=== PATIENT | female | born 1995 | race American Indian/Alaskan Native ===

== ENCOUNTER 2017-07-01 17:44 | Emergency (ER) | payer MEDICAID ==
--- NOTE | 2017-07-01 19:35 | C.PDOC ---
History Of Present Illness The patient presents today with complaints of pelvic discomfort, present for the past 4 days. She reports she was treated for chlamydia 1 month ago, however the treatment was incomplete - patient states she did not receive rocephin and when she took the zithromax, she vomited. She states she has only been taking doxycycline for the past month. She denies any associated vaginal discharge, pain upon ambulation, fever, chills, nausea, vomiting. She offers no additional medical complaints. Time Seen by Provider: 07/01/17 19:34 Chief Complaint (Nursing): Female Genitourinary History Per: Patient History/Exam Limitations: no limitations Onset/Duration Of Symptoms: Days (4) Current Symptoms Are (Timing): Still Present Severity: Mild Pain Scale Rating Of: 3 Quality Of Discomfort: "Pain" Associated Symptoms: denies: Fever, Chills, Nausea, Vomiting Alleviating Factors: None Recent travel outside of the [place]: No Additional History Per: Patient Abnormal Vaginal Bleeding: No Past Medical History Reviewed: Historical Data, Nursing Documentation, Vital Signs Vital Signs: Last Vital Signs Temp 98.5 F 07/01/17 18:40 Pulse 99 H 07/01/17 18:40 Resp 18 07/01/17 18:40 BP 156/96 H 07/01/17 18:40 Pulse Ox 99 07/01/17 20:15 - Medical History PMH: No Chronic Diseases Surgical History: No Surg Hx Family History: States: No Known Family Hx - Social History Hx Alcohol Use: Yes Hx Substance Use: Yes - Immunization History Hx Tetanus Toxoid Vaccination: No Hx Influenza Vaccination: No Hx Pneumococcal Vaccination: No Review Of Systems Constitutional: Negative for: Fever, Chills Eyes: Negative for: Redness Cardiovascular: Negative for: Chest Pain Respiratory: Negative for: Shortness of Breath Gastrointestinal: Negative for: Nausea, Vomiting Genitourinary: Positive for: Pelvic Pain. Negative for: Vaginal Discharge Musculoskeletal: Negative for: Other (pain upon ambulation) Skin: Negative for: Rash, Lesions Neurological: Negative for: Weakness Psych: Negative for: Anxiety Physical Exam - Physical Exam Appears: Non-toxic, No Acute Distress Skin: Warm, Dry Oral Mucosa: Moist Neck: Supple Cardiovascular: Rhythm Regular Respiratory: No Decreased Breath Sounds, No Accessory Muscle Use Gastrointestinal/Abdominal: Bowel Sounds, Soft, No Tenderness, No Distention, No Guarding, No Rebound Back: No CVA Tenderness Extremity: No Deformity, No Swelling Extremity: Bilateral: Atraumatic Neurological/Psych: Oriented x3, Normal Speech, Normal Cognition Gait: Steady ED Course And Treatment - Laboratory Results Result Diagrams: 07/01/17 20:07 07/01/17 20:07 O2 Sat by Pulse Oximetry: 99 (RA) Pulse Ox Interpretation: Normal Progress Note: Labs, Zithromax 1000 mg PO, Rocephin IVPB, Zofran 4mg IV, IV fluids ordered. Reevaluation Time: 22:28 Disposition Counseled Patient/Family Regarding: Studies Performed, Diagnosis, Need For Followup - Disposition Referrals: Robert Umanzor MD [Medical Doctor] - Disposition: HOME/ ROUTINE Disposition Time: 19:35 Condition: FAIR Prescriptions: Doxycycline Hyclate 100 mg PO BID #20 capsule Instructions: Chlamydia (ED) Forms: [employer] (Hong Konger) - Clinical Impression Clinical Impression: Urethritis - Scribe Statement The provider has reviewed the documentation as recorded by the Juliette Kothari Provider Attestation: All medical record entries made by the Juliette were at my direction and personally dictated by me. I have reviewed the chart and agree that the record accurately reflects my personal performance of the history, physical exam, medical decision making, and the department course for this patient. I have also personally directed, reviewed, and agree with the discharge instructions and disposition.
[2017-07-01] MEDS ORDERED: Sodium Chloride 0.9% 1,000 ML IV ONE (19:37)
[2017-07-01 20:11] LABS: BASO # 0.1 K/uL (0.0-0.2); BASO % 0.5 % (0.0-2.0); EOS # 0.1 K/uL (0.0-0.7); HEMATOCRIT 37.4 % (34.0-47.0); LYMPH # 4.2 K/uL (1.0-4.3); LYMPH % 42.7 % (20.0-40.0); MEAN CELL VOLUME 88.2 fL (81.0-99.0); MEAN CORPUSCULAR HEMOGLOBIN 29.8 pg (27.0-31.0); MEAN CORPUSCULAR HGB CONC 33.8 g/dL (33.0-37.0); MEAN PLATELET VOLUME 9.6 fL (7.2-11.7); MONO # 0.9 K/uL (0.0-0.8); MONO % 8.8 % (0.0-10.0); NRBC % 0.1 % (0.0-2.0); WHITE BLOOD COUNT 9.8 K/uL (4.8-10.8)
[2017-07-01 20:22] LABS: CHLORIDE 108 mmol/L (98-107); POTASSIUM 3.5 mmol/L (3.6-5.2); SODIUM 138 mmol/L (132-148)
[2017-07-01] MEDS ORDERED: cefTRIAXone IV 1 gm in Dextros 50 ML IVPB ONE ×2 (20:23→21:00)
[2017-07-01 20:24] LABS: AST/SGOT 16 U/L (14-36); BILIRUBIN,TOTAL 0.5 mg/dL (0.2-1.3); GFR AFRICAN-AMERICAN > 60; INR 1.1
[2017-07-01 20:25] LABS: ALB/GLOB RATIO 1.4 (1.0-2.1); ALKALINE PHOSPHATASE 67 U/L (38-126); ALT/SGPT 26 U/L (9-52); BLOOD UREA NITROGEN 8 mg/dL (7-17); CALCIUM 8.9 mg/dl (8.6-10.4); CARBON DIOXIDE 19 mmol/L (22-30); GLUCOSE,RANDOM 83 mg/dL (65-105); TOTAL PROTEIN 7.1 g/dL (6.3-8.3)
[2017-07-01 20:31] LABS: RBC URINE 1 /hpf (0-3); URINE BACTERIA OCC (<OCC); URINE BILIRUBIN NEGATIVE (NEGATIVE); URINE BLOOD NEGATIVE (NEGATIVE); URINE COLOR Yellow (YELLOW); URINE GLUCOSE (UA) NORMAL (Normal); URINE KETONE NEGATIVE (NEGATIVE); URINE LEUKOCYTE ESTERASE TRACE Leu/uL (Negative); URINE PROTEIN NEGATIVE (NEGATIVE); URINE UROBILINOGEN NORMAL mg/dL (0.2-1.0); WBC URINE 4 /hpf (0-5)
[2017-07-01 23:38] VITALS: BP 128/70; PULSE 76; RESP 20; TEMP 98; O2SAT 98
== END 2017-07-01 23:37 | disposition home or self-care (01) ==
LOC: C.ER 17:44
DX: N34.2 Other urethritis (principal)
CPT/HCPCS: 80053; 81001; 84703; 85025; 85610; 85730; 87491; 87591; 96374; 99282; J2405; J7040

== ENCOUNTER 2017-12-01 20:51 | Emergency (ER) | payer BC, MEDICAID, OTHER ==
[2017-12-01 21:06] VITALS: RESP 16
[2017-12-01 21:39] LABS: HCG,QUALITATIVE URINE POSITIVE (NEGATIVE)
[2017-12-01 21:41] LABS: SQUAMOUS EPITHIAL 4 /hpf (0-5); URINE BACTERIA OCC (<OCC); URINE BILIRUBIN NEGATIVE (NEGATIVE); URINE BLOOD 3+ (NEGATIVE); URINE CLARITY Clear (Clear); URINE GLUCOSE (UA) NORMAL (Normal); URINE LEUKOCYTE ESTERASE TRACE Leu/uL (Negative); URINE NITRATE NEGATIVE (NEGATIVE); URINE PROTEIN NEGATIVE (NEGATIVE); URINE UROBILINOGEN NORMAL mg/dL (0.2-1.0)
[2017-12-01 21:43] LABS: URINE COLOR YELLOW (YELLOW)
--- NOTE | 2017-12-01 21:50 | C.PDOC ---
History Of Present Illness 22-year-old female, presents to the emergency department with complaints of diffuse abdominal discomfort. Patient states her last menstrual period was on . She had a positive test at home. Today, she developed lower abdominal cramping associated with dark brown vagina discharge. Patient has had two prior pregnancies, states she miscarried at 8 weeks, and had a still born at 6 months. Denies nausea/vomiting, fevers, chills, headache, dizziness, chest pain or shortness of breath. No other complaints at this time. Time Seen by Provider: 12/01/17 21:19 Chief Complaint (Nursing): Abdominal Pain History Per: Patient History/Exam Limitations: no limitations Current Symptoms Are (Timing): Still Present Severity: Moderate Past Medical History Reviewed: Historical Data, Nursing Documentation, Vital Signs Vital Signs: Last Vital Signs Temp 98.5 F 12/01/17 21:01 Pulse 84 12/01/17 21:01 Resp 16 12/01/17 21:01 BP 155/90 H 12/01/17 21:01 Pulse Ox 100 12/01/17 23:08 Family History: States: No Known Family Hx - Social History Hx Alcohol Use: Yes Hx Substance Use: No - Immunization History Hx Tetanus Toxoid Vaccination: No Hx Influenza Vaccination: No Hx Pneumococcal Vaccination: No Review Of Systems Except As Marked, All Systems Reviewed And Found Negative. Constitutional: Negative for: Fever, Chills Cardiovascular: Negative for: Chest Pain, Palpitations Respiratory: Negative for: Shortness of Breath Gastrointestinal: Positive for: Abdominal Pain. Negative for: Nausea, Vomiting , Diarrhea Genitourinary: Positive for: Vaginal Bleeding. Negative for: Vaginal Discharge Musculoskeletal: Negative for: Back Pain Skin: Negative for: Rash Neurological: Negative for: Weakness, Numbness, Headache, Dizziness Physical Exam - Physical Exam Appears: Non-toxic, No Acute Distress Skin: Warm, Dry, No Rash Head: Normacephalic Eye(s): bilateral: Normal Inspection, PERRL Nose: Normal Oral Mucosa: Moist Neck: Normal ROM Chest: Symmetrical Cardiovascular: Rhythm Regular, No Murmur Respiratory: Normal Breath Sounds, No Accessory Muscle Use Gastrointestinal/Abdominal: Soft, No Tenderness, No Guarding Extremity: Normal ROM Neurological/Psych: Oriented x3, Normal Speech ED Course And Treatment - Laboratory Results Result Diagrams: 12/01/17 22:09 12/01/17 22:09 Lab Interpretation: Abnormal (BHCG 488) O2 Sat by Pulse Oximetry: 100 (RA) Pulse Ox Interpretation: Normal - CT Scan/US Ultrasound Other Rad Studies (CT/US): Interpreted By Me, Read By Radiologist, Radiology Report Reviewed CT/US Interpretation: EXAM: US First Trimester, Transabdominal. CLINICAL HISTORY: 22 years old, female; Pain and signs and symptoms; Other: Vag bleed; Pelvic pain; Additional info: with vaginal bleeding. TECHNIQUE: Real-time transabdominal obstetrical ultrasound of the maternal pelvis and a first trimester. with image documentation. COMPARISON: No relevant prior studies available. FINDINGS: Gestation: No intrauterine gestational sac. Uterus/cervix: Endometrium: 1.6 cm in thickness. Closed cervix.Ovaries: RIGHT ovary: Normal. LEFT ovary: Probable 1.9 x 2.2 x 1.9 cm corpus luteal cyst. 2.4 x. 3.5 x 2.3 cm heterogeneous lesion within right adnexal region. Free fluid: Moderate complex free fluid within pelvis. IMPRESSION: 1. No intrauterine gestation. DDX: Early IUP, missed , ectopic . 2. Right adnexal lesion, indeterminate. Ectopic not excluded. 3. Complex pelvic ascites, likely hemorrhage Reevaluation Time: 23:17 Reassessment Condition: Unchanged - Physician Consult Information Time Consulting Physician Contacted: 23:17 Physician Contacted: Luis Carlos Allen Outcome Of Conversation: Patient advised to return to the ED in 2 days for repeat BHCG and ultrasound. Medical Decision Making Medical Decision Making: Plan: * Beta HCG, CMP * CBC * US Transvaginal * UA * Reassess and Disposition Disposition Counseled Patient/Family Regarding: Studies Performed, Diagnosis, Need For Followup - Disposition Referrals: [facility] [Outside] Disposition: HOME/ ROUTINE Disposition Time: 23:18 Condition: STABLE Additional Instructions: Return to the Emergency Department in 2 days for repeat blood tests and ultrasound. Instructions: Threatened Miscarriage (ED), Ectopic (ED) Forms: [employer] (Togolese) - Clinical Impression Clinical Impression: Threatened - Scribe Statement The provider has reviewed the documentation as recorded by the Scribe (Marjorie Joshi) All medical record entries made by the Scribe were at my direction and personally dictated by me. I have reviewed the chart and agree that the record accurately reflects my personal performance of the history, physical exam, medical decision making, and the department course for this patient. I have also personally directed, reviewed, and agree with the discharge instructions and disposition.
[2017-12-01 22:12] LABS: BASO % 0.2 % (0.0-2.0); EOS # 0.1 K/uL (0.0-0.7); EOS % 0.5 % (0.0-4.0); HEMOGLOBIN 12.7 g/dL (11.0-16.0); LYMPH # 3.3 K/uL (1.0-4.3); LYMPH % 27.7 % (20.0-40.0); MEAN CORPUSCULAR HEMOGLOBIN 31.2 pg (27.0-31.0); MEAN CORPUSCULAR HGB CONC 33.9 g/dL (33.0-37.0); MEAN PLATELET VOLUME 10.1 fL (7.2-11.7); MONO % 8.1 % (0.0-10.0); NEUT # 7.5 K/uL (1.8-7.0); NEUT % 63.5 % (50.0-75.0); RBC 4.08 Mil/uL (3.80-5.20); WHITE BLOOD COUNT 11.8 K/uL (4.8-10.8)
[2017-12-01 22:25] LABS: ALB/GLOB RATIO 1.2 (1.0-2.1); ALBUMIN 4.2 g/dL (3.5-5.0); ALT/SGPT 24 U/L (9-52); AST/SGOT 16 U/L (14-36); BLOOD UREA NITROGEN 7 mg/dL (7-17); CALCIUM 9.2 mg/dl (8.6-10.4); GFR AFRICAN-AMERICAN > 60; GFR NON-AFRICAN AMERICAN > 60
--- NOTE | 2017-12-01 22:55 | US ---
EXAM: US First Trimester, Transabdominal CLINICAL HISTORY: 22 years old, female; Pain and signs and symptoms; Other: Vag bleed; Pelvic pain; Additional info: with vaginal bleeding TECHNIQUE: Real-time transabdominal obstetrical ultrasound of the maternal pelvis and a first trimester with image documentation. COMPARISON: No relevant prior studies available. FINDINGS: Gestation: No intrauterine gestational sac. Uterus/cervix: Endometrium: 1.6 cm in thickness. Closed cervix. Ovaries: RIGHT ovary: Normal. LEFT ovary: Probable 1.9 x 2.2 x 1.9 cm corpus luteal cyst. 2.4 x 3.5 x 2.3 cm heterogeneous lesion within right adnexal region. Free fluid: Moderate complex free fluid within pelvis. IMPRESSION: 1. No intrauterine gestation. DDX: Early IUP, missed , ectopic . 2. Right adnexal lesion, indeterminate. Ectopic not excluded. 3. Complex pelvic ascites, likely hemorrhage. EXAM: US , Transvaginal CLINICAL HISTORY: 22 years old, female; Pain and signs and symptoms; Other: Vag bleed; Pelvic pain; Additional info: with vaginal bleeding TECHNIQUE: Real-time transvaginal obstetrical ultrasound of the maternal pelvis and a first trimester with image documentation. Transvaginal imaging was used for better evaluation of the fetus and adnexa. COMPARISON: No relevant prior studies available. FINDINGS: Gestation: No intrauterine gestational sac. Uterus/cervix: Endometrium: 1.6 cm in thickness. Closed cervix. Ovaries: RIGHT ovary: Normal. LEFT ovary: Probable 1.9 x 2.2 x 1.9 cm corpus luteal cyst. 2.4 x 3.5 x 2.3 cm heterogeneous lesion within right adnexal region. Free fluid: Moderate complex free fluid within pelvis.
[2017-12-01 23:31] VITALS: BP 132/68; PULSE 89; TEMP 98; O2SAT 98
== END 2017-12-01 23:31 | disposition home or self-care (01) ==
LOC: C.ER 20:51
DX: O20.0 Threatened abortion (principal)